=== PATIENT | male | born 1975 | race Caucasian/White ===

== ENCOUNTER 2019-12-19 13:00 | Outpatient (RCR) | payer OTHER ==
[2013-07-11 16:14] VITALS: BP 134/84
[~2019-12-19 13:00] MED LIST: ATIVAN1 MG PO; BUSPAR5 MG PO; GEMFIBROZIL600 MG PO; PRAVASTATIN20 MG PO
== END 2019-12-19 13:30 | disposition still patient (30) ==
LOC: PT 13:00
DX: M22.42 Chondromalacia patellae, left knee (principal)

== ENCOUNTER 2020-10-04 07:06 | Emergency (ER) | payer OTHER ==
[~2020-10-04] VITALS: Ht 175.3 cm; Wt 85.2 kg
[2020-10-04] MEDS ORDERED: XARELTO20 MG PO (07:27)
[2020-10-04] MEDS ORDERED: OLANZAPINE20 M1 PO (07:27)
[2020-10-04] MEDS ORDERED: REMERON15 MG PO (07:29)
[2020-10-04] MEDS ORDERED: FLUOXETINE40 MG PO (07:30)
[2020-10-04] MEDS ORDERED: FLOMAX0.4 MG PO (07:30)
[2020-10-04 08:10] LABS: EOS # 0.1 (0.04-0.40); EOS % 0.8 % (0.0-4.0); HEMATOCRIT 38.3 % (42.0-52.0); HEMOGLOBIN 12.3 g/dL (13.5-18.0); LYMPH# 1.5 (1.50-4.00); MEAN CELL VOLUME 95 fl (78-100); MEAN CORPUSCULAR HEMOGLOBIN 31 pg (27-31); MEAN CORPUSCULAR HGB CONC 32 g/dL (33-37); MEAN PLATELET VOLUME 8.9 fl (7.4-10.4); MONO # 0.4 (0.20-0.80); NEU # 4.4 (1.40-6.50); PLATELET COUNT 231 K/mm3 (130-400); RED BLOOD COUNT 4.02 M/mm3 (4.20-5.60); WHITE BLOOD COUNT 6.3 K/mm3 (4.8-10.8)
[2020-10-04] MEDS ORDERED: CLEOCIN HCL150 M1 PO (11:15)
[2020-10-04] MEDS ORDERED: PERCOCET 325 MG1 TA2 PO (11:15)
[2020-10-04 11:35] VITALS: BP 115/76
== END 2020-10-04 11:35 | disposition home or self-care (01) ==
LOC: ED 07:06
PROVIDERS: Family Medicine
DX: M25.462 Effusion, left knee (principal); F43.10 Post-traumatic stress disorder, unspecified; F17.200 Nicotine dependence, unspecified, uncomplicated; Z86.711 Personal history of pulmonary embolism; Z79.01 Long term (current) use of anticoagulants

== ENCOUNTER → 2020-10-12 | Outpatient (CLI) | payer MEDICARE ==
[2020-10-11 21:34] VITALS: BP 152/86
[~2020-10-12] MED LIST changes: +CLEOCIN HCL150 M1 PO; +FLOMAX0.4 MG PO; +FLUOXETINE40 MG PO; +OLANZAPINE20 M1 PO; +PERCOCET 325 MG1 TA2 PO; +REMERON15 MG PO; +XARELTO20 MG PO
[2020-10-12 09:31] LABS: EOS # 0.2 (0.04-0.40); EOS % 2.4 % (0.0-4.0); HEMATOCRIT 34.2 % (42.0-52.0); LYMPH# 1.7 (1.50-4.00); MEAN CELL VOLUME 96 fl (78-100); MEAN CORPUSCULAR HEMOGLOBIN 31 pg (27-31); MEAN CORPUSCULAR HGB CONC 32 g/dL (33-37); MEAN PLATELET VOLUME 9.7 fl (7.4-10.4); MONO # 0.3 (0.20-0.80); NEU # 4.1 (1.40-6.50); PLATELET COUNT 234 K/mm3 (130-400); RED BLOOD COUNT 3.57 M/mm3 (4.20-5.60); RED CELL DISTRIBUTION WIDTH 11.7 % (11.5-14.5); WHITE BLOOD COUNT 6.2 K/mm3 (4.8-10.8)
[2020-10-12 09:33] LABS: POTASSIUM 3.5 mmol/L (3.5-5.1)
[2020-10-12 09:34] LABS: CALCIUM 8.5 mg/dL (8.3-10.5)
[2020-10-12 12:21] LABS: ERYTHROCYTE SEDIMENTATION RATE 57 mm/hr (0-15)
== END ==
LOC: LAB 08:25
PROVIDERS: Orthopaedic Surgery
DX: M25.562 Pain in left knee (principal)

== ENCOUNTER → 2020-10-19 | Outpatient (CLI) | payer MEDICARE ==
[2020-10-18 21:58] VITALS: BP 139/72
[2020-10-19 08:58] LABS: EOS # 0.2 (0.04-0.40); EOS % 3.2 % (0.0-4.0); HEMOGLOBIN 11.1 g/dL (13.5-18.0); LYMPH# 1.6 (1.50-4.00); MEAN CELL VOLUME 97 fl (78-100); MEAN CORPUSCULAR HEMOGLOBIN 30 pg (27-31); MEAN CORPUSCULAR HGB CONC 31 g/dL (33-37); MEAN PLATELET VOLUME 9.6 fl (7.4-10.4); MONO # 0.3 (0.20-0.80); NEU # 5.1 (1.40-6.50); PLATELET COUNT 164 K/mm3 (130-400); RED BLOOD COUNT 3.71 M/mm3 (4.20-5.60); RED CELL DISTRIBUTION WIDTH 12.1 % (11.5-14.5); WHITE BLOOD COUNT 7.2 K/mm3 (4.8-10.8)
[2020-10-19 09:30] LABS: POTASSIUM 3.6 mmol/L (3.5-5.1)
[2020-10-19 09:31] LABS: CALCIUM 8.2 mg/dL (8.3-10.5)
[2020-10-19 10:37] LABS: ERYTHROCYTE SEDIMENTATION RATE 40 mm/hr (0-15)
== END ==
LOC: LAB 07:49
PROVIDERS: Orthopaedic Surgery
DX: Z01.89 Encounter for other specified special examinations (principal)

== ENCOUNTER → 2020-10-26 | Outpatient (CLI) | payer MEDICARE ==
[2020-10-25 21:30] VITALS: BP 113/75
[2020-10-26 08:24] LABS: EOS # 0.1 (0.04-0.40); EOS % 2.1 % (0.0-4.0); HEMATOCRIT 35.9 % (42.0-52.0); HEMOGLOBIN 11.5 g/dL (13.5-18.0); LYMPH# 1.7 (1.50-4.00); MEAN CELL VOLUME 96 fl (78-100); MEAN CORPUSCULAR HEMOGLOBIN 31 pg (27-31); MEAN CORPUSCULAR HGB CONC 32 g/dL (33-37); MEAN PLATELET VOLUME 9.1 fl (7.4-10.4); MONO # 0.3 (0.20-0.80); NEU # 2.6 (1.40-6.50); PLATELET COUNT 235 K/mm3 (130-400); RED BLOOD COUNT 3.76 M/mm3 (4.20-5.60); WHITE BLOOD COUNT 4.8 K/mm3 (4.8-10.8)
[2020-10-26 08:33] LABS: CALCIUM 8.6 mg/dL (8.3-10.5)
[2020-10-26 09:28] LABS: ERYTHROCYTE SEDIMENTATION RATE 42 mm/hr (0-15)
== END ==
LOC: LAB 07:56
PROVIDERS: Internal Medicine Infectious Disease
DX: T81.49XA Infection following a procedure, other surgical site, initial encounter (principal); Z79.899 Other long term (current) drug therapy

== ENCOUNTER → 2020-11-02 | Outpatient (CLI) | payer MEDICARE ==
[2020-11-01 21:30] VITALS: BP 132/78
[2020-11-02 08:34] LABS: POTASSIUM 3.4 mmol/L (3.5-5.1)
[2020-11-02 08:35] LABS: CALCIUM 7.9 mg/dL (8.3-10.5)
[2020-11-02 08:41] LABS: EOS # 0.1 (0.04-0.40); EOS % 2.4 % (0.0-4.0); HEMATOCRIT 36.7 % (42.0-52.0); HEMOGLOBIN 11.7 g/dL (13.5-18.0); LYMPH# 1.5 (1.50-4.00); MEAN CELL VOLUME 96 fl (78-100); MEAN CORPUSCULAR HEMOGLOBIN 31 pg (27-31); MEAN CORPUSCULAR HGB CONC 32 g/dL (33-37); MEAN PLATELET VOLUME 9.7 fl (7.4-10.4); MONO # 0.2 (0.20-0.80); NEU # 2.4 (1.40-6.50); PLATELET COUNT 179 K/mm3 (130-400); RED BLOOD COUNT 3.83 M/mm3 (4.20-5.60); RED CELL DISTRIBUTION WIDTH 12.1 % (11.5-14.5); WHITE BLOOD COUNT 4.2 K/mm3 (4.8-10.8)
[2020-11-02 09:47] LABS: ERYTHROCYTE SEDIMENTATION RATE 18 mm/hr (0-15)
== END ==
LOC: LAB 07:55
PROVIDERS: Internal Medicine Infectious Disease
DX: Z01.89 Encounter for other specified special examinations (principal)

== ENCOUNTER → 2020-11-09 | Outpatient (CLI) | payer MEDICARE ==
[2020-11-08 23:34] VITALS: BP 127/79
[2020-11-09 09:05] LABS: EOS # 0.1 (0.04-0.40); HEMATOCRIT 38.1 % (42.0-52.0); HEMOGLOBIN 12.4 g/dL (13.5-18.0); LYMPH# 1.7 (1.50-4.00); MEAN CELL VOLUME 95 fl (78-100); MEAN CORPUSCULAR HEMOGLOBIN 31 pg (27-31); MEAN CORPUSCULAR HGB CONC 33 g/dL (33-37); MONO # 0.2 (0.20-0.80); NEU # 2.4 (1.40-6.50); PLATELET COUNT 165 K/mm3 (130-400); RED BLOOD COUNT 4.03 M/mm3 (4.20-5.60); RED CELL DISTRIBUTION WIDTH 11.8 % (11.5-14.5); WHITE BLOOD COUNT 4.4 K/mm3 (4.8-10.8)
[2020-11-09 09:08] LABS: POTASSIUM 3.8 mmol/L (3.5-5.1)
[2020-11-09 09:09] LABS: CALCIUM 8.3 mg/dL (8.3-10.5)
[2020-11-09 10:55] LABS: ERYTHROCYTE SEDIMENTATION RATE 18 mm/hr (0-15)
== END ==
LOC: LAB 07:58
PROVIDERS: Internal Medicine Infectious Disease
DX: Z01.89 Encounter for other specified special examinations (principal)

== ENCOUNTER 2020-11-10 12:54 | Outpatient (RCR) | payer MEDICARE ==
[2020-11-09 21:40] VITALS: BP 117/78
--- NOTE | 2020-11-12 08:49 | NUR ---
PICC LINE RED FLUSHES EASY WIHTOUT NOTED BLOOD RETURN, PURPLE FLUSHES HARD WIHTOUT BLOOD RETURN. CXR ORDERED TO VERIFY PLACEMENT. PER CXR RIGHT APPROACH PICC IS SATISFACTORY POSITION. INFUSION STARTED
== END 2020-11-23 16:30 | disposition still patient (30) ==
LOC: PT 12:54
DX: T81.42XD Infection following a procedure, deep incisional surgical site, subsequent encounter (principal)

== ENCOUNTER → 2020-11-16 | Outpatient (CLI) | payer MEDICARE ==
[2020-11-16 08:21] LABS: EOS # 0.1 (0.04-0.40); EOS % 2.9 % (0.0-4.0); HEMATOCRIT 37.5 % (42.0-52.0); HEMOGLOBIN 11.9 g/dL (13.5-18.0); LYMPH# 1.7 (1.50-4.00); MEAN CELL VOLUME 95 fl (78-100); MEAN CORPUSCULAR HEMOGLOBIN 30 pg (27-31); MEAN CORPUSCULAR HGB CONC 32 g/dL (33-37); MEAN PLATELET VOLUME 9.5 fl (7.4-10.4); MONO # 0.2 (0.20-0.80); NEU # 2.4 (1.40-6.50); PLATELET COUNT 176 K/mm3 (130-400); RED BLOOD COUNT 3.94 M/mm3 (4.20-5.60); RED CELL DISTRIBUTION WIDTH 11.8 % (11.5-14.5); WHITE BLOOD COUNT 4.5 K/mm3 (4.8-10.8)
[2020-11-16 08:30] LABS: POTASSIUM 4.1 mmol/L (3.5-5.1)
[2020-11-16 08:31] LABS: CALCIUM 8.3 mg/dL (8.3-10.5)
[2020-11-16 09:26] LABS: ERYTHROCYTE SEDIMENTATION RATE 20 mm/hr (0-15)
== END ==
LOC: LAB 08:00
PROVIDERS: Physician Assistant
DX: Z79.899 Other long term (current) drug therapy (principal)

== ENCOUNTER → 2020-11-17 | Outpatient (CLI) | payer MEDICARE ==
[2020-11-16 21:45] VITALS: BP 150/85
== END ==
LOC: LAB 07:55
DX: Z01.89 Encounter for other specified special examinations (principal)

== ENCOUNTER 2020-11-18 20:00 | Outpatient (RCR) | payer MEDICARE ==
[2020-10-08 08:10] VITALS: BP 146/90
[2020-10-08 10:05] VITALS: BP 148/90
[2020-10-08 20:03] VITALS: BP 133/84
[2020-10-08 21:39] VITALS: BP 122/67
[2020-10-09 08:08] VITALS: BP 129/78
[2020-10-09 09:43] VITALS: BP 130/74
[2020-10-09 20:00] VITALS: BP 130/68
[2020-10-09 21:54] VITALS: BP 149/90
[2020-10-10 08:06] VITALS: BP 146/86
[2020-10-10 20:00] VITALS: BP 149/83
[2020-10-10 21:40] VITALS: BP 148/82
[2020-10-11 08:08] VITALS: BP 147/92
[2020-10-11 20:00] VITALS: BP 146/84
[2020-10-11 21:34] VITALS: BP 152/86
[2020-10-12 08:27] VITALS: BP 120/71
[2020-10-12 20:00] VITALS: BP 150/88
[2020-10-12 21:41] VITALS: BP 144/81
[2020-10-13 08:05] VITALS: BP 137/82
[2020-10-13 20:10] VITALS: BP 127/83
[2020-10-14 20:30] VITALS: BP 122/80
[2020-10-14 22:05] VITALS: BP 122/77
[2020-10-15 08:12] VITALS: BP 144/76
[2020-10-15 19:56] VITALS: BP 151/87
[2020-10-15 21:34] VITALS: BP 136/89
[2020-10-16 08:10] VITALS: BP 140/86
[2020-10-16 20:04] VITALS: BP 143/82
[2020-10-16 21:51] VITALS: BP 130/71
[2020-10-17 08:20] VITALS: BP 130/81
[2020-10-17 19:50] VITALS: BP 126/82
[2020-10-17 21:30] VITALS: BP 137/90
[2020-10-18 08:20] VITALS: BP 146/64
[2020-10-18 20:00] VITALS: BP 127/80
[2020-10-18 21:58] VITALS: BP 139/72
[2020-10-19 07:52] VITALS: BP 112/72
[2020-10-19 19:58] VITALS: BP 125/85
[2020-10-19 21:34] VITALS: BP 124/67
[2020-10-20 08:00] VITALS: BP 148/86
[2020-10-20 20:06] VITALS: BP 143/82
[2020-10-20 22:00] VITALS: BP 117/87
[2020-10-21 07:58] VITALS: BP 131/85
[2020-10-21 08:08] VITALS: BP 131/85
[2020-10-21 09:52] VITALS: BP 133/80
[2020-10-21 20:01] VITALS: BP 139/81
[2020-10-21 21:34] VITALS: BP 114/81
[2020-10-22 08:16] VITALS: BP 128/78
[2020-10-22 09:49] VITALS: BP 130/72
[2020-10-22 20:41] VITALS: BP 128/74
[2020-10-22 22:16] VITALS: BP 130/78
[2020-10-23 08:13] VITALS: BP 118/79
[2020-10-23 09:42] VITALS: BP 117/77
[2020-10-23 20:00] VITALS: BP 125/82
[2020-10-23 20:05] VITALS: BP 125/82
[2020-10-23 21:40] VITALS: BP 136/74
[2020-10-24 08:00] VITALS: BP 146/83
[2020-10-24 09:40] VITALS: BP 120/76
[2020-10-24 20:04] VITALS: BP 131/79
[2020-10-24 21:52] VITALS: BP 124/74
[2020-10-25 08:00] VITALS: BP 133/68
[2020-10-25 09:40] VITALS: BP 123/67
[2020-10-25 19:56] VITALS: BP 113/75
[2020-10-25 21:30] VITALS: BP 113/75
[2020-10-26 07:56] VITALS: BP 142/87
[2020-10-26 09:31] VITALS: BP 145/82
[2020-10-26 20:25] VITALS: BP 127/76
[2020-10-26 22:20] VITALS: BP 142/85
[2020-10-27 08:14] VITALS: BP 123/74
[2020-10-27 20:00] VITALS: BP 126/69
[2020-10-27 21:30] VITALS: BP 111/62
[2020-10-28 07:59] VITALS: BP 130/70
[2020-10-28 09:34] VITALS: BP 129/71
[2020-10-28 19:58] VITALS: BP 142/93
[2020-10-28 21:43] VITALS: BP 136/76
[2020-10-29 08:34] VITALS: BP 135/81
[2020-10-29 20:00] VITALS: BP 138/82
[2020-10-29 21:40] VITALS: BP 140/82
[2020-10-30 08:10] VITALS: BP 154/76
[2020-10-30 20:00] VITALS: BP 126/75
[2020-10-30 21:30] VITALS: BP 134/86
[2020-10-31 07:59] VITALS: BP 141/87
[2020-10-31 08:01] VITALS: BP 141/87
[2020-10-31 19:54] VITALS: BP 148/80
[2020-10-31 21:32] VITALS: BP 130/78
[2020-11-01 07:48] VITALS: BP 127/78
[2020-11-01 09:27] VITALS: BP 120/78
[2020-11-01 19:58] VITALS: BP 128/85
[2020-11-01 21:30] VITALS: BP 132/78
[2020-11-02 08:16] VITALS: BP 117/72
[2020-11-02 20:00] VITALS: BP 127/89
[2020-11-02 21:30] VITALS: BP 125/74
[2020-11-03 08:01] VITALS: BP 141/84
[2020-11-03 09:37] VITALS: BP 144/84
[2020-11-03 20:10] VITALS: BP 137/75
[2020-11-03 21:57] VITALS: BP 141/77
[2020-11-04 08:09] VITALS: BP 156/87
[2020-11-04 19:55] VITALS: BP 124/105
[2020-11-04 21:47] VITALS: BP 112/80
[2020-11-05 08:21] VITALS: BP 132/75
[2020-11-05 09:45] VITALS: BP 119/70
[2020-11-05 20:04] VITALS: BP 119/71
[2020-11-05 21:36] VITALS: BP 122/77
[2020-11-06 07:52] VITALS: BP 138/85
[2020-11-06 09:28] VITALS: BP 118/87
[2020-11-06 20:01] VITALS: BP 124/77
[2020-11-06 21:36] VITALS: BP 137/84
[2020-11-07 08:19] VITALS: BP 134/87
[2020-11-07 20:03] VITALS: BP 128/90
[2020-11-07 22:10] VITALS: BP 129/76
[2020-11-08 08:38] VITALS: BP 137/87
[2020-11-08 21:59] VITALS: BP 129/81
[2020-11-08 23:34] VITALS: BP 127/79
[2020-11-09 08:05] VITALS: BP 131/78
[2020-11-09 09:58] VITALS: BP 136/72
[2020-11-09 20:04] VITALS: BP 128/70
[2020-11-09 21:40] VITALS: BP 117/78
[2020-11-10 20:00] VITALS: BP 148/80
[2020-11-10 21:35] VITALS: BP 140/74
[2020-11-11 07:51] VITALS: BP 146/79
[2020-11-11 09:37] VITALS: BP 128/97
[2020-11-11 19:58] VITALS: BP 152/87
[2020-11-11 21:55] VITALS: BP 129/77
[2020-11-12 08:02] VITALS: BP 127/84
[2020-11-12 10:12] VITALS: BP 128/83
[2020-11-12 20:04] VITALS: BP 131/77
[2020-11-12 21:44] VITALS: BP 117/75
[2020-11-13 08:11] VITALS: BP 148/82
[2020-11-13 20:01] VITALS: BP 143/82
[2020-11-13 21:50] VITALS: BP 125/68
[2020-11-14 08:01] VITALS: BP 140/85
[2020-11-14 09:50] VITALS: BP 124/85
[2020-11-14 20:25] VITALS: BP 146/84
[2020-11-15 08:05] VITALS: BP 155/87
[2020-11-15 10:03] VITALS: BP 138/78
[2020-11-15 19:59] VITALS: BP 167/88
[2020-11-15 21:35] VITALS: BP 136/74
[2020-11-16 07:50] VITALS: BP 123/82
[2020-11-16 09:48] VITALS: BP 112/75
[2020-11-16 20:00] VITALS: BP 151/88
[2020-11-16 21:45] VITALS: BP 150/85
[2020-11-17 08:09] VITALS: BP 139/86
[2020-11-17 20:10] VITALS: BP 134/84
[2020-11-17 21:40] VITALS: BP 140/84
[2020-11-18 08:07] VITALS: BP 125/71
[2020-11-18 09:41] VITALS: BP 129/72
[2020-11-18 20:30] VITALS: BP 122/83
== END 2020-11-18 22:00 | disposition home or self-care (01) ==
LOC: AMSURD 20:00
DX: Z45.2 Encounter for adjustment and management of vascular access device (principal); M00.9 Pyogenic arthritis, unspecified
CPT/HCPCS: J0696; J1644; J2997; J3370; J7050

== ENCOUNTER → 2020-11-25 | Outpatient (CLI) | payer MEDICARE ==
[2020-11-18 20:30] VITALS: BP 122/83
[2020-11-25 19:00] LABS: EOS % 2.3 % (0.0-4.0); HEMATOCRIT 41.8 % (42.0-52.0); HEMOGLOBIN 13.4 g/dL (13.5-18.0); MEAN CELL VOLUME 95 fl (78-100); MEAN CORPUSCULAR HEMOGLOBIN 30 pg (27-31); MEAN CORPUSCULAR HGB CONC 32 g/dL (33-37); MEAN PLATELET VOLUME 9.2 fl (7.4-10.4); PLATELET COUNT 210 K/mm3 (130-400); RED BLOOD COUNT 4.41 M/mm3 (4.20-5.60); RED CELL DISTRIBUTION WIDTH 11.8 % (11.5-14.5); WHITE BLOOD COUNT 5.3 K/mm3 (4.8-10.8)
[2020-11-25 19:01] LABS: EOS # 0.1 (0.04-0.40); ERYTHROCYTE SEDIMENTATION RATE 12 mm/hr (0-15); LYMPH# 1.9 (1.50-4.00); MONO # 0.3 (0.20-0.80); NEU # 3.1 (1.40-6.50)
[2020-11-25 19:14] LABS: ALBUMIN 4.2 g/dL (3.5-5.0); CALCIUM 8.7 mg/dL (8.3-10.5); POTASSIUM 3.8 mmol/L (3.5-5.1)
[2020-11-25 19:17] LABS: TOTAL BILIRUBIN 0.3 mg/dL (0.2-1.2)
== END ==
LOC: LAB 11:05
PROVIDERS: Internal Medicine Infectious Disease
DX: B99.9 Unspecified infectious disease (principal)

== ENCOUNTER → 2020-12-28 | Outpatient (CLI) | payer MEDICARE ==
[2020-12-28 13:24] LABS: EOS # 0.1 (0.04-0.40); EOS % 1.9 % (0.0-4.0); HEMATOCRIT 38.7 % (42.0-52.0); HEMOGLOBIN 12.3 g/dL (13.5-18.0); LYMPH# 1.7 (1.50-4.00); MEAN CELL VOLUME 95 fl (78-100); MEAN CORPUSCULAR HEMOGLOBIN 30 pg (27-31); MEAN CORPUSCULAR HGB CONC 32 g/dL (33-37); MEAN PLATELET VOLUME 9.2 fl (7.4-10.4); MONO # 0.3 (0.20-0.80); NEU # 2.6 (1.40-6.50); PLATELET COUNT 194 K/mm3 (130-400); RED BLOOD COUNT 4.06 M/mm3 (4.20-5.60); RED CELL DISTRIBUTION WIDTH 12.1 % (11.5-14.5); WHITE BLOOD COUNT 4.6 K/mm3 (4.8-10.8)
[2020-12-28 13:36] LABS: ALBUMIN 3.8 g/dL (3.5-5.0); POTASSIUM 4.2 mmol/L (3.5-5.1)
[2020-12-28 13:37] LABS: CALCIUM 8.3 mg/dL (8.3-10.5)
[2020-12-28 13:38] LABS: TOTAL PROTEIN 6.5 g/dL (6.4-8.3)
[2020-12-28 13:40] LABS: TOTAL BILIRUBIN 0.2 mg/dL (0.2-1.2)
[2020-12-28 14:25] LABS: ERYTHROCYTE SEDIMENTATION RATE 32 mm/hr (0-15)
== END ==
LOC: LAB 13:12
PROVIDERS: Internal Medicine Infectious Disease
DX: B99.9 Unspecified infectious disease (principal)

== ENCOUNTER → 2021-05-31 | Outpatient (CLI) | payer MEDICARE ==
[2021-05-31 12:34] LABS: HEMATOCRIT 40.2 % (42.0-52.0); HEMOGLOBIN 13.3 g/dL (13.5-18.0); MEAN PLATELET VOLUME 9.5 fl (7.4-10.4); RED BLOOD COUNT 4.36 M/mm3 (4.20-5.60); RED CELL DISTRIBUTION WIDTH 11.7 % (11.5-14.5); WHITE BLOOD COUNT 6.1 K/mm3 (4.8-10.8)
== END ==
LOC: LAB 12:23
PROVIDERS: Orthopaedic Surgery
DX: M25.562 Pain in left knee (principal)

== ENCOUNTER → 2021-08-13 | Outpatient (CLI) | payer MEDICARE ==
[2021-08-13 13:20] LABS: BASO # 0.01 K/mm3 (0.02-0.10); EOS # 0.07 K/mm3 (0.04-0.40); EOS % 1.2 % (0.0-4.0); LYMPH# 2.02 K/mm3 (1.50-4.00); MEAN CELL VOLUME 93 fl (78-100); MEAN CORPUSCULAR HEMOGLOBIN 31 pg (27-31); MEAN CORPUSCULAR HGB CONC 33 g/dL (33-37); PLATELET COUNT 188 K/mm3 (130-400); RED BLOOD COUNT 4.51 M/mm3 (4.20-5.60); RED CELL DISTRIBUTION WIDTH 11.5 % (11.5-14.5); WHITE BLOOD COUNT 5.8 K/mm3 (4.8-10.8)
[2021-08-13 13:56] LABS: ALBUMIN 3.9 g/dL (3.5-5.0); POTASSIUM 4.1 mmol/L (3.5-5.1)
[2021-08-13 13:58] LABS: CALCIUM 8.9 mg/dL (8.3-10.5)
[2021-08-13 13:59] LABS: TOTAL PROTEIN 6.9 g/dL (6.4-8.3)
[2021-08-13 14:01] LABS: TOTAL BILIRUBIN 0.3 mg/dL (0.2-1.2)
== END ==
LOC: LAB 13:11
PROVIDERS: Orthopaedic Surgery
DX: M89.9 Disorder of bone, unspecified (principal)

== ENCOUNTER 2021-11-17 13:07 | Emergency (ER) | payer OTHER ==
[~2021-11-17] VITALS: Wt 83.3 kg
[2021-11-17 13:43] LABS: BASO # 0.02 K/mm3 (0.02-0.10); EOS # 0.02 K/mm3 (0.04-0.40); EOS % 0.4 % (0.0-4.0); HEMATOCRIT 37.9 % (42.0-52.0); HEMOGLOBIN 12.6 g/dL (13.5-18.0); LYMPH# 0.86 K/mm3 (1.50-4.00); MEAN CELL VOLUME 92 fl (78-100); MEAN CORPUSCULAR HEMOGLOBIN 31 pg (27-31); MEAN CORPUSCULAR HGB CONC 33 g/dL (33-37); MEAN PLATELET VOLUME 9.6 fl (7.4-10.4); MONO # 0.36 K/mm3 (0.20-0.80); NEU # 4.33 K/mm3 (1.40-6.50); PLATELET COUNT 139 K/mm3 (130-400); RED BLOOD COUNT 4.13 M/mm3 (4.20-5.60); RED CELL DISTRIBUTION WIDTH 11.3 % (11.5-14.5); WHITE BLOOD COUNT 5.6 K/mm3 (4.8-10.8)
[2021-11-17 13:55] LABS: ALBUMIN 3.8 g/dL (3.5-5.0)
[2021-11-17 13:56] LABS: POTASSIUM 3.7 mmol/L (3.5-5.1); SODIUM 137 mmol/L (136-145)
[2021-11-17 13:58] LABS: GLUCOSE 125 mg/dL (75-110); TOTAL PROTEIN 6.7 g/dL (6.4-8.3)
[2021-11-17 13:59] LABS: CALCIUM 8.5 mg/dL (8.3-10.5); CARBON DIOXIDE 24 mmol/L (22-29)
[2021-11-17 14:00] LABS: TOTAL BILIRUBIN 0.5 mg/dL (0.2-1.2)
[2021-11-17 14:03] LABS: AST-SGOT 32 U/L (5-34)
[2021-11-17 14:06] LABS: ALT/SGPT 32 U/L (0-55)
[2021-11-17 14:34] LABS: TROPONIN-I < 0.030 ng/mL (<0.030)
[2021-11-17 14:47] LABS: D-DIMER 0.5 mg/L FEU (0.15-0.50)
[2021-11-17] MEDS ORDERED: PREDNISONE20 MG PO (15:01)
[2021-11-17] MEDS ORDERED: ZITHROMAX Z PA250 MG PO (15:01)
[2021-11-17] MEDS ORDERED: RT ALBUTEROL CC18 GM IH (15:01)
[2021-11-17 15:06] VITALS: BP 147/87
[2021-11-18] MEDS ORDERED: FLOVENT HFA12 G1 IH (23:31)
== END 2021-11-17 15:07 | disposition home or self-care (01) ==
LOC: ED 13:07
PROVIDERS: Physician Assistant
DX: J40 Bronchitis, not specified as acute or chronic (principal); F41.9 Anxiety disorder, unspecified; F32.A Depression, unspecified; F43.10 Post-traumatic stress disorder, unspecified; F17.200 Nicotine dependence, unspecified, uncomplicated; Z86.711 Personal history of pulmonary embolism; Z20.822 Contact with and (suspected) exposure to COVID-19; Z79.01 Long term (current) use of anticoagulants; Z79.899 Other long term (current) drug therapy
CPT/HCPCS: J2930

== ENCOUNTER 2021-11-18 22:12 | Emergency (ER) | payer OTHER ==
[~2021-11-18] VITALS: Ht 172.7 cm; Wt 83.3 kg
[~2021-11-18 22:12] MED LIST changes: +PREDNISONE20 MG PO; +RT ALBUTEROL CC18 GM IH; +ZITHROMAX Z PA250 MG PO
[2021-11-18] MEDS ORDERED: FLOVENT HFA12 G1 IH (23:31)
[2021-11-18 23:45] VITALS: BP 125/78
== END 2021-11-18 23:45 | disposition home or self-care (01) ==
LOC: ED 22:12
DX: J40 Bronchitis, not specified as acute or chronic (principal); F41.9 Anxiety disorder, unspecified; F17.290 Nicotine dependence, other tobacco product, uncomplicated; Z86.711 Personal history of pulmonary embolism; Z79.01 Long term (current) use of anticoagulants; Z79.899 Other long term (current) drug therapy
CPT/HCPCS: J2930

== ENCOUNTER → 2022-05-11 | Outpatient (CLI) | payer OTHER ==
[~2022-05-11] MED LIST changes: +FLOVENT HFA12 G1 IH
== END ==
LOC: RAD 08:00
DX: M25.562 Pain in left knee (principal)

== ENCOUNTER 2022-12-13 13:00 | Outpatient (RCR) | payer OTHER ==
[~2022-12-13 13:00] MED LIST changes: +CLINDAMYCIN 300MG PO
== END 2022-12-30 | disposition home or self-care (01) ==
LOC: PT
DX: M17.12 Unilateral primary osteoarthritis, left knee (principal)

== ENCOUNTER → 2023-07-20 | Day surgery (SDC) | payer OTHER | END | disposition home or self-care (01) | LOC: MSO 08:24 | DX: K29.50 Unspecified chronic gastritis without bleeding (principal); D12.5 Benign neoplasm of sigmoid colon; R63.4 Abnormal weight loss; G47.33 Obstructive sleep apnea (adult) (pediatric); F17.210 Nicotine dependence, cigarettes, uncomplicated; Z79.01 Long term (current) use of anticoagulants; Z86.718 Personal history of other venous thrombosis and embolism | CPT/HCPCS: 00813; J2704; J3010; J7120 ==

== ENCOUNTER → 2023-10-19 | Outpatient (CLI) | payer OTHER ==
[2023-10-19 15:38] LABS: BASO # 0.02 K/mm3 (0.02-0.10); EOS # 0.06 K/mm3 (0.04-0.40); EOS % 1.2 % (0.0-4.0); HEMATOCRIT 37.4 % (42.0-52.0); HEMOGLOBIN 12.1 g/dL (13.5-18.0); LYMPH# 1.46 K/mm3 (1.50-4.00); MEAN CELL VOLUME 95 fl (78-100); MEAN CORPUSCULAR HEMOGLOBIN 31 pg (27-31); MEAN CORPUSCULAR HGB CONC 32 g/dL (33-37); MEAN PLATELET VOLUME 9.4 fl (7.4-10.4); MONO # 0.23 K/mm3 (0.20-0.80); NEU # 3.06 K/mm3 (1.40-6.50); PLATELET COUNT 173 K/mm3 (130-400); RED BLOOD COUNT 3.95 M/mm3 (4.20-5.60); RED CELL DISTRIBUTION WIDTH 12.2 % (11.5-14.5); WHITE BLOOD COUNT 4.8 K/mm3 (4.8-10.8)
== END ==
LOC: LAB 15:25
PROVIDERS: Orthopaedic Surgery Sports Medicine
DX: M25.562 Pain in left knee (principal); T84.82XD Fibrosis due to internal orthopedic prosthetic devices, implants and grafts, subsequent encounter; Z96.652 Presence of left artificial knee joint

== ENCOUNTER 2024-11-12 01:57 | Inpatient (IN) | payer OTHER ==
[~2024-11-12] VITALS: Ht 172.7 cm; Wt 91.0 kg
[2024-11-12] MEDS ORDERED: Albuterol/Ipratropium 3 MG-0.5 MG/3 ML Neb Soln IH ONE ×3 (02:30→03:00)
[2024-11-12] MEDS ORDERED: methylPREDNISolone Sod Succ 125 MG/2 ML VIAL IV ONE (02:30)
[2024-11-12] MEDS ORDERED: Acetaminophen 325 MG TAB PO ONE (02:30)
[2024-11-12] MEDS ORDERED: NS 1,000 ML IV SCH ×2 (02:30→04:45)
[2024-11-12 02:42] LABS: HEMATOCRIT 35.5 % (42.0-52.0); HEMOGLOBIN 11.6 g/dL (13.5-18.0); MEAN CELL VOLUME 96 fl (78-100); MEAN CORPUSCULAR HEMOGLOBIN 31 pg (27-31); MEAN CORPUSCULAR HGB CONC 33 g/dL (33-37); MEAN PLATELET VOLUME 9.6 fl (7.4-10.4); PLATELET COUNT 124 K/mm3 (130-400); RED BLOOD COUNT 3.69 M/mm3 (4.20-5.60); RED CELL DISTRIBUTION WIDTH 11.8 % (11.5-14.5); WHITE BLOOD COUNT 4.9 K/mm3 (4.8-10.8)
[2024-11-12 02:49] LABS: ALBUMIN 3.9 g/dL (3.5-5.0)
[2024-11-12 02:50] LABS: CALCIUM 8.6 mg/dL (8.3-10.5)
[2024-11-12 02:51] LABS: TOTAL PROTEIN 7.1 g/dL (6.4-8.3)
[2024-11-12 02:53] LABS: TOTAL BILIRUBIN 0.8 mg/dL (0.2-1.2)
[2024-11-12 03:05] LABS: D-DIMER 1.51 mg/L FEU (0.15-0.50)
[2024-11-12 03:11] LABS: BAND 4 % (0-10); NEUTROPHILS 84 % (42-75)
[2024-11-12 03:12] LABS: LYMPHOCYTE 8 % (20-51); MONOCYTE 4 % (3-10)
[2024-11-12] MEDS ORDERED: NS 100 ML IV SCH (03:36)
[2024-11-12] MEDS ORDERED: Iohexol 300 - 100 ML VIAL IV ONE (03:37)
[2024-11-12] MEDS ORDERED: Oseltamivir 75 MG CAP PO ONE (04:15)
[2024-11-12] MEDS ORDERED: Azithromycin 500 MG in NS 250 ML IV ONE (04:15)
[2024-11-12] MEDS ORDERED: cefTRIAXone 1 G in Water For Injection,Sterile 10 ML IV ONE (04:15)
[2024-11-12] MEDS ORDERED: Ondansetron 4 MG/2 ML VIAL IV PRN (04:30)
[2024-11-12] MEDS ORDERED: Bisacodyl 5 MG TAB PO PRN (04:30)
[2024-11-12] MEDS ORDERED: Acetaminophen 325 MG TAB PO PRN (04:30)
[2024-11-12 04:35] VITALS: BP 136/69
[2024-11-12] MEDS ORDERED: Albuterol/Ipratropium 3 MG-0.5 MG/3 ML Neb Soln IH SCH (04:35)
[2024-11-12] MEDS ORDERED: LORazepam 0.5 MG TABLET PO PRN (04:45)
[2024-11-12] MEDS ORDERED: Albuterol 90 MCG/PUFF MDI IH PRN (05:00)
[2024-11-12 07:10] VITALS: BP 112/71
[2024-11-12] MEDS ORDERED: OLANZapine 5 MG TAB PO SCH (09:00)
[2024-11-12] MEDS ORDERED: FLUoxetine 10 MG TAB/CAP PO SCH (09:00)
[2024-11-12] MEDS ORDERED: methylPREDNISolone Sod Succ 125 MG/2 ML VIAL IV SCH (09:00)
[2024-11-12] MEDS ORDERED: Mirtazapine 15 MG TAB PO SCH (09:00)
[2024-11-12] MEDS ORDERED: Budesonide Neb Soln 0.5 MG/2 ML AMP IH SCH (09:00)
[2024-11-12] MEDS ORDERED: guaiFENesin/Dextromethorphan Oral Soln 200-20 MG/10 ML UD PO PRN (09:45)
[2024-11-12 11:12] VITALS: BP 160/76
[2024-11-12 15:00] VITALS: BP 115/60
[2024-11-12 19:00] VITALS: BP 142/72
[2024-11-12 23:34] VITALS: BP 132/77
[2024-11-13 02:58] VITALS: BP 126/74
[2024-11-13] MEDS ORDERED: cefTRIAXone 1 G in Water For Injection,Sterile 10 ML IV SCH (05:45)
[2024-11-13] MEDS ORDERED: Azithromycin 500 MG in NS 250 ML IV SCH (06:00)
[2024-11-13 07:10] VITALS: BP 110/70
[2024-11-13 07:41] LABS: HEMATOCRIT 33.5 % (42.0-52.0); HEMOGLOBIN 10.9 g/dL (13.5-18.0); MEAN CELL VOLUME 98 fl (78-100); MEAN CORPUSCULAR HEMOGLOBIN 32 pg (27-31); MEAN CORPUSCULAR HGB CONC 33 g/dL (33-37); MEAN PLATELET VOLUME 9.8 fl (7.4-10.4); PLATELET COUNT 127 K/mm3 (130-400); RED BLOOD COUNT 3.42 M/mm3 (4.20-5.60); WHITE BLOOD COUNT 9.3 K/mm3 (4.8-10.8)
[2024-11-13 07:51] LABS: ALBUMIN 3.5 g/dL (3.5-5.0)
[2024-11-13 07:52] LABS: CALCIUM 8.2 mg/dL (8.3-10.5)
[2024-11-13 07:53] LABS: TOTAL PROTEIN 6.5 g/dL (6.4-8.3)
[2024-11-13 07:55] LABS: TOTAL BILIRUBIN 0.4 mg/dL (0.2-1.2)
[2024-11-13 08:33] LABS: NEUTROPHILS 91 % (42-75)
[2024-11-13 08:34] LABS: LYMPHOCYTE 6 % (20-51); MONOCYTE 3 % (3-10)
[2024-11-13] MEDS ORDERED: predniSONE 20 MG TAB PO SCH (09:00)
[2024-11-13 11:08] VITALS: BP 130/73
[2024-11-13 15:14] VITALS: BP 136/75
[2024-11-13] MEDS ORDERED: PREDNISONE20 M1 PO (17:32)
[2024-11-13] MEDS ORDERED: RT ALBUTEROL CC18 GM IH (17:32)
[2024-11-13] MEDS ORDERED: IPRATROPIUM BROM3 M1 IH (17:32)
[2024-11-13] MEDS ORDERED: ZITHROMAX500 M2 PO (17:32)
[2024-11-13] MEDS ORDERED: AMOXICILLIN AND1 TA2 PO (17:32)
[2024-11-13 18:04] VITALS: BP 137/72
[2024-11-14] MEDS ORDERED: Amoxicillin/Clavulanate K+ 875/125 MG TAB PO SCH (08:00)
[2024-11-14] MEDS ORDERED: Azithromycin 250 MG TAB PO SCH (09:00)
== END 2024-11-13 18:00 | disposition home or self-care (01) | DRG 139 ==
LOC: ED 01:57 → MED/SURG 04:12
PROVIDERS: ADMIT Physician Assistant
DX: J09.X1 Influenza due to identified novel influenza A virus with pneumonia (principal); E87.1 Hypo-osmolality and hyponatremia; R09.02 Hypoxemia; R00.0 Tachycardia, unspecified; F41.9 Anxiety disorder, unspecified; F17.210 Nicotine dependence, cigarettes, uncomplicated; Z79.01 Long term (current) use of anticoagulants; Z86.711 Personal history of pulmonary embolism; Z96.652 Presence of left artificial knee joint
CPT/HCPCS: J0456; J0696; J2919; J7030; J7050; J7512; Q9967

== ENCOUNTER 2024-11-15 15:31 | Emergency (ER) | payer OTHER ==
[~2024-11-15] VITALS: Ht 172.7 cm; Wt 90.9 kg
[~2024-11-15 15:31] MED LIST changes: +AMOXICILLIN AND1 TA2 PO; +IPRATROPIUM BROM3 M1 IH; +PREDNISONE20 M1 PO; +ZITHROMAX500 M2 PO
[2024-11-15 15:56] LABS: HEMATOCRIT 33.1 % (42.0-52.0); HEMOGLOBIN 10.9 g/dL (13.5-18.0); LYMPH# 1.61 K/mm3 (1.50-4.00); MEAN CELL VOLUME 97 fl (78-100); MEAN CORPUSCULAR HEMOGLOBIN 32 pg (27-31); MEAN CORPUSCULAR HGB CONC 33 g/dL (33-37); MEAN PLATELET VOLUME 9.6 fl (7.4-10.4); MONO # 0.34 K/mm3 (0.20-0.80); NEU # 4.93 K/mm3 (1.40-6.50); PLATELET COUNT 148 K/mm3 (130-400); RED BLOOD COUNT 3.43 M/mm3 (4.20-5.60); RED CELL DISTRIBUTION WIDTH 11.9 % (11.5-14.5); WHITE BLOOD COUNT 6.9 K/mm3 (4.8-10.8)
[2024-11-15 16:03] LABS: ALBUMIN 3.4 g/dL (3.5-5.0); SODIUM 135 mmol/L (136-145)
[2024-11-15 16:04] LABS: CALCIUM 8.2 mg/dL (8.3-10.5)
[2024-11-15 16:05] LABS: GLUCOSE 119 mg/dL (75-110); TOTAL PROTEIN 6.5 g/dL (6.4-8.3)
[2024-11-15 16:06] LABS: CARBON DIOXIDE 24 mmol/L (22-29)
[2024-11-15 16:07] LABS: TOTAL BILIRUBIN 0.7 mg/dL (0.2-1.2)
[2024-11-15 16:11] LABS: AST-SGOT 72 U/L (5-34)
[2024-11-15 16:12] LABS: ALT/SGPT 58 U/L (0-55)
[2024-11-15] MEDS ORDERED: Azithromycin 500 MG in NS 250 ML IV ONE (16:15)
[2024-11-15] MEDS ORDERED: Oseltamivir 75 MG CAP PO ONE (16:15)
[2024-11-15] MEDS ORDERED: Albuterol/Ipratropium 3 MG-0.5 MG/3 ML Neb Soln IH ONE (16:15)
[2024-11-15] MEDS ORDERED: cefTRIAXone 1 G in Water For Injection,Sterile 10 ML IV ONE (16:15)
[2024-11-15 16:17] LABS: TROPONIN-I < 0.030 ng/mL (0.00-0.033)
[2024-11-15 19:56] VITALS: BP 134/79
== END 2024-11-15 20:11 | disposition short-term general hospital (02) ==
LOC: ED 15:31
PROVIDERS: Physician Assistant
DX: J10.00 Influenza due to other identified influenza virus with unspecified type of pneumonia (principal); J96.01 Acute respiratory failure with hypoxia; Z86.711 Personal history of pulmonary embolism; Z79.01 Long term (current) use of anticoagulants
CPT/HCPCS: J0456; J0696; J7050